=== PATIENT | male | born 1985 | race Caucasian/White ===

== ENCOUNTER 2018-10-03 08:22 | Emergency (ER) | payer MEDICAID, SELFPAY ==
[~2018-10-03] VITALS: Ht 175.3 cm; Wt 90.9 kg
[2018-10-03 08:22] VITALS: BP 134/84
--- NOTE | 2018-10-03 08:55 | REP ---
Left foot four views : There is no fracture or dislocation. Mineralization and joint spaces are normal. There are no calcifications or foreign bodies. Impression: Negative left foot . Electronically Signed by Dallas Haines MD 10/03/2018 08:46 A
[2018-10-03] MEDS ORDERED: IBUPROFEN 800 MG TAB PO ONE (09:00)
== END 2018-10-03 09:15 | disposition home or self-care (01) ==
LOC: M ED 08:22
DX: S90.32XA Contusion of left foot, initial encounter (principal); W22.09XA Striking against other stationary object, initial encounter; Y92.009 Unspecified place in unspecified non-institutional (private) residence as the place of occurrence of the external cause; F17.200 Nicotine dependence, unspecified, uncomplicated

== ENCOUNTER 2018-11-14 08:32 | Emergency (ER) | payer SELFPAY ==
[~2018-11-14] VITALS: Ht 175.3 cm; Wt 90.9 kg
[2018-11-14 08:32] VITALS: BP 114/73
[2018-11-14] MEDS ORDERED: KETOROLAC 30 MG/ML VIAL (J1885) IM ONE (09:15)
--- NOTE | 2018-11-14 09:57 | REP ---
Lumbar spine series: Five views. History: Back pain. Extreme pain times 2 days. Findings: There is degenerative narrowing and anterior osteophyte formation at the L1-2 disc level and probably to some degree at the T12-L1 level. Other disc spaces are maintained. Vertebral body heights are preserved. Alignment is normal. Pedicles and posterior elements are intact. There is no evidence of spondylolysis or spondylolisthesis. Sacrum and SI joints are intact. Psoas margins are symmetric. The bowel gas pattern is normal. Impression: Mild degenerative disc changes at the L1-2 and possibly at T12-L1. Otherwise negative lumbar spine radiographs. Electronically Signed by Bahman Watson MD 11/14/2018 09:49 A
== END 2018-11-14 10:50 | disposition left against medical advice (07) ==
LOC: M ED 08:32
DX: M51.36 Other intervertebral disc degeneration, lumbar region (principal); M51.34 Other intervertebral disc degeneration, thoracic region; F17.210 Nicotine dependence, cigarettes, uncomplicated; F12.20 Cannabis dependence, uncomplicated

== ENCOUNTER 2019-01-25 10:22 | Emergency (ER) | payer MEDICAID, SELFPAY ==
[~2019-01-25] VITALS: Ht 175.3 cm; Wt 90.9 kg
[2019-01-25] MEDS ORDERED: ACETAMINOPHEN TAB 650MG DOSE (2X325MG) PO ONE (11:15)
[2019-01-25] MEDS ORDERED: ADACEL/BOOSTRIX VACCINE (DIPHTH/PERTUSS/ACELL/TETANUS)0.5ML SYR (90715) IM ONE (11:15)
[2019-01-25] MEDS ORDERED: ACETAMINOPHEN 500 MG TAB PO ONE (11:15)
[2019-01-25] MEDS ORDERED: LIDOCAINE W/EPINEPHRINE 1% 20ML VIAL As Ordered ONE (11:19)
[2019-01-25] MEDS ORDERED: LIDOCAINE W/EPINEPHRINE 1% 20ML VIAL SC ONE (11:30)
[2019-01-25] MEDS ORDERED: NAPR-837 PO (11:58)
[2019-01-25 12:10] VITALS: BP 134/76
== END 2019-01-25 12:17 | disposition home or self-care (01) ==
LOC: M ED 10:22 → EDBD 10:22 → M ED 12:17
DX: S01.81XA Laceration without foreign body of other part of head, initial encounter (principal); S30.0XXA Contusion of lower back and pelvis, initial encounter; Y04.8XXA Assault by other bodily force, initial encounter; Y92.098 Other place in other non-institutional residence as the place of occurrence of the external cause; M54.9 Dorsalgia, unspecified; F17.200 Nicotine dependence, unspecified, uncomplicated

== ENCOUNTER 2019-01-26 10:54 | Emergency (ER) | payer MEDICAID, SELFPAY ==
[~2019-01-26] VITALS: Ht 175.3 cm; Wt 90.0 kg
[~2019-01-26 10:54] MED LIST: NAPR-837 PO
--- NOTE | 2019-01-26 11:50 | REP ---
Unilateral right ribs PA chest five views History: Trauma The lungs are clear. The heart is normal in size. The pulmonary vasculature is normal in appearance. The bony structure is intact. Impression: No acute disease. Electronically Signed by Travis Rothman MD 01/26/2019 11:40 A
[2019-01-26 12:07] VITALS: BP 136/74
--- NOTE | 2019-01-26 12:14 | REP ---
RIGHT KIDNEY, FIVE VIEWS: HISTORY: Trauma. There is no acute fracture or dislocation. The joint spaces are normal in appearance. IMPRESSION: There is no acute fracture or dislocation. Electronically Signed by Travis Rothman MD 01/26/2019 12:16 P
== END 2019-01-26 12:11 | disposition home or self-care (01) ==
LOC: M ED 10:54
DX: S80.01XA Contusion of right knee, initial encounter (principal); S20.221A Contusion of right back wall of thorax, initial encounter; Y04.8XXA Assault by other bodily force, initial encounter; Y92.410 Unspecified street and highway as the place of occurrence of the external cause; Y93.9 Activity, unspecified; Y99.9 Unspecified external cause status; Z72.0 Tobacco use

== ENCOUNTER 2019-02-01 10:32 | Emergency (ER) | payer SELFPAY ==
[~2019-02-01] VITALS: Ht 175.3 cm; Wt 88.6 kg
[2019-02-01 10:32] VITALS: BP 134/74
== END 2019-02-01 11:49 | disposition home or self-care (01) ==
LOC: M ED 10:32
DX: Z48.02 Encounter for removal of sutures (principal)

== ENCOUNTER → 2019-02-03 | Outpatient (CLI) | payer MEDICAID, OTHER, SELFPAY ==
--- NOTE | 2019-02-03 19:46 | REP ---
Supine abdomen, single AP view: There are no comparisons. The bowel gas pattern is normal. There are no calcifications. The skeletal structures and soft tissues are otherwise are. Impression: Negative supine abdomen. Electronically Signed by Dallas Haines MD 02/03/2019 07:38 P
--- NOTE | 2019-02-03 19:48 | REP ---
Bilateral rib series and PA chest: Comparison is a right rib series dated 12/26/2018. There is no rib fracture or other rib abnormality on the right or the left. Impression: Negative bilateral rib series. PA chest: The there is no pneumothorax, hemothorax or pulmonary contusion. Lung nolasco are clear. Cardiac size is normal. The david, mediastinum, skeletal structures are unremarkable. Impression: Negative PA chest. Electronically Signed by Dallas Haines MD 02/03/2019 07:40 P
== END ==
LOC: M LRY 19:00
PROVIDERS: ATTEND Nurse Practitioner Family
DX: R10.9 Unspecified abdominal pain (principal); R07.81 Pleurodynia

== ENCOUNTER → 2019-02-03 | Outpatient (REF) | payer MEDICAID, OTHER, SELFPAY ==
[2019-02-03 23:59] LABS: CHLAMYDIA DNA AMPLIFICATION NEGATIVE (NEGATIVE); GC DNA AMPLIFICATION NEGATIVE (NEGATIVE)
== END ==
LOC: M SFHCLERA 17:58
PROVIDERS: ATTEND Nurse Practitioner Family
DX: R10.9 Unspecified abdominal pain (principal)

== ENCOUNTER → 2019-04-02 | Outpatient (CLI) | payer MEDICAID | LOC: M OUTALCOH 13:15 | PROVIDERS: ATTEND Psychiatry & Neurology Psychiatry | DX: F12.20 Cannabis dependence, uncomplicated (principal) ==

== ENCOUNTER → 2019-04-08 | Outpatient (CLI) | payer MEDICAID | LOC: M OUTALCOH 13:09 | PROVIDERS: ATTEND Psychiatry & Neurology Psychiatry | DX: F11.20 Opioid dependence, uncomplicated (principal) ==

== ENCOUNTER 2020-05-08 16:29 | Emergency (ER) | payer MEDICAID, OTHER ==
[~2020-05-08] VITALS: Ht 175.3 cm; Wt 83.4 kg
[2020-05-08 16:30] VITALS: BP 124/85
[2020-05-08] MEDS ORDERED: LIDOCAINE 2% W/EPINEPHRINE 20ML VIAL **PRES FREE INJ ONE (17:30)
--- NOTE | 2020-05-20 08:29 | REP ---
CT MAXILLOFACIAL BONES HISTORY: Trauma. FINDINGS: CT maxillofacial bones performed in the axial plane with sagittal and coronal reconstruction images. No fracture is seen of the maxillofacial bones. The globes are intact. Soft tissue laceration is noted in the right periorbital region. Soft tissue density in the left maxillary sinus has a somewhat rounded configuration and fills essentially the entire sinus and probably represents a retention cyst or polyp. Otherwise, no abnormal sinus opacification is visualized. The mastoid air cells are well aerated with no abnormal opacification. IMPRESSION: No evidence of fracture of the maxillofacial bones. Retention cyst or polyp left maxillary sinus. Preliminary report provided by [facility] at the time of the examination. [facility]
--- NOTE | 2020-05-20 08:29 | REP ---
CT BRAIN HISTORY: Trauma. FINDINGS: Axial CT of the brain was performed without the use of intravenous contrast. Coronal reconstruction images are performed. The ventricles are normal in size and position. There is no midline shift or mass effect. The perez-white differentiation is well maintained. There is no acute intracranial hemorrhage or extraaxial fluid collection. No skull fracture is seen. There is soft tissue injury in the right periorbital region. Rounded densities partially visualized in the left maxillary sinus likely representing a retention cyst or polyp. IMPRESSION: No acute intracranial hemorrhage or skull fracture. Preliminary report provided by [facility] at the time of the exam. [id number]
== END 2020-05-08 18:56 | disposition left against medical advice (07) ==
LOC: M ED 16:29
DX: S01.81XA Laceration without foreign body of other part of head, initial encounter (principal); Y00.XXXA Assault by blunt object, initial encounter; Y92.019 Unspecified place in single-family (private) house as the place of occurrence of the external cause; Y99.9 Unspecified external cause status; F17.200 Nicotine dependence, unspecified, uncomplicated; Z53.9 Procedure and treatment not carried out, unspecified reason

== ENCOUNTER 2021-05-24 04:52 | Emergency (ER) | payer OTHER ==
[~2021-05-24] VITALS: Ht 175.3 cm; Wt 81.8 kg
[2021-05-24 04:53] VITALS: BP 120/76
== END 2021-05-24 05:04 | disposition left against medical advice (07) ==
LOC: M ED 04:52
DX: Z53.29 Procedure and treatment not carried out because of patient's decision for other reasons (principal)

== ENCOUNTER 2025-08-02 22:57 | Emergency (ER) | payer OTHER ==
[~2025-08-02] VITALS: Ht 175.3 cm; Wt 89.1 kg
[2025-08-03 00:50] VITALS: BP 143/86; TEMP 98.7; O2SAT 96
== END 2025-08-03 00:56 | disposition home or self-care (01) ==
LOC: M ED 22:57
DX: S86.111A Strain of other muscle(s) and tendon(s) of posterior muscle group at lower leg level, right leg, initial encounter (principal); Y92.9 Unspecified place or not applicable; Y93.9 Activity, unspecified; Y99.9 Unspecified external cause status